=== PATIENT | male | born 1990 | race African-American/Black ===

== ENCOUNTER 2021-09-16 18:02 | Emergency (ER) | payer OTHER ==
[~2021-09-16] VITALS: Ht 172.7 cm; Wt 75.0 kg
[2021-09-16 18:13] VITALS: BP 130/78
[2021-09-16 22:14] LABS: HEMATOCRIT. 43.6 % (42.0-52.0); HEMOGLOBIN. 14.4 g/dL (14.0-18.0); MEAN CORPUSCULAR HEMOGLOBIN 29.7 pg (28.0-32.0); MEAN CORPUSCULAR VOLUME 90.1 fL (80.0-94.0); MEAN PLATELET VOLUME 9.3 fl (7.4-10.4); PLATELET 140 x1000/uL (130-400); RED BLOOD CELL COUNT 4.84 mill/uL (4.7-6.1); RED CELL DISTRIBUTION WIDTH 13.8 % (11.6-14.6)
[2021-09-16 22:22] LABS: CHLORIDE 103 mEq/L (98-107)
[2021-09-16 22:30] LABS: PLATELET ESTIMATE NORMAL
== END 2021-09-16 22:45 | disposition home or self-care (01) ==
LOC: ER 18:02
DX: U07.1 COVID-19 (principal)
CPT/HCPCS: 36415; 80053; 83690; 85025; 87426; 99283; C9803